=== PATIENT | female | born 2000 | race African-American/Black ===

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

== ENCOUNTER 2019-01-28 12:06 | Emergency (ER) | payer MEDICAID ==
[~2019-01-28] VITALS: Wt 52.0 kg
[2019-01-28 12:19] VITALS: BP 117/64; PULSE 71; RESP 18
[2019-01-28] MEDS ORDERED: PARO10TA57 PO (13:45)
[2019-01-28] MEDS ORDERED: OLAN10TA7 PO (13:45)
--- NOTE | 2019-01-28 13:46 | ERD ---
ER Documentation Chief Complaint Chief Complaint MEDICATION REFILL ROS All systems reviewed and are negative except as per history of present illness. Medications Home Meds Active Scripts Paroxetine Hcl* (Paxil*) 10 Mg Tablet, 10 MG PO DAILY for bipolar, #30 TAB Prov:JERALD STEINBERG DO 01/28/19 Olanzapine* (Zyprexa*) 10 Mg Tablet, 10 MG PO DAILY for bipolar, #30 TAB Prov:JERALD STEINBERG DO 01/28/19 Allergies Allergies: Coded Allergies: tramadol (Verified Allergy, Unknown, 12/24/18) PMhx/Soc History of Surgery: No Anesthesia Reaction: No Hx Neurological Disorder: No Hx Respiratory Disorders: No Hx Cardiac Disorders: No Hx Psychiatric Problems: Yes (depression, ptsd) Hx Alcohol Use: No Hx Substance Use: Yes (marijuana) Hx Tobacco Use: No Physical Exam Vitals Vital Signs Date Temp Pulse Resp B/P (MAP) Pulse Ox O2 O2 Flow FiO2 Time Delivery Rate 01/28/19 98.6 71 18 117/64 99 12:19 (81) Physical Exam Const: No acute distress Head: Atraumatic Eyes: Normal Conjunctiva ENT: Normal External Ears, Nose and Mouth. Neck: Full range of motion. No meningismus. Resp: Clear to auscultation bilaterally Cardio: Regular rate and rhythm, no murmurs Abd: Soft, non tender, non distended. Normal bowel sounds Skin: No petechiae or rashes Back: No midline or flank tenderness Ext: No cyanosis, or edema Neur: Awake and alert Psych: Normal Mood and Affect Departure Diagnosis: Primary Impression: Encounter for medication refill Additional Impression: Bipolar disorder Condition: Fair Patient Instructions: Taking Medicine Safely Referrals: [facility] YOU HAVE RECEIVED A MEDICAL SCREENING EXAM AND THE RESULTS INDICATE THAT YOU DO NOT HAVE A CONDITION THAT REQUIRES URGENT TREATMENT IN THE EMERGENCY DEPARTMENT. FURTHER EVALUATION AND TREATMENT OF YOUR CONDITION CAN WAIT UNTIL YOU ARE SEEN IN YOUR DOCTORS OFFICE WITHIN THE NEXT 1-2 DAYS. IT IS YOUR RESPONSIBILITY TO MAKE AN APPOINTMENT FOR FOLOW-UP CARE. IF YOU HAVE A PRIMARY DOCTOR --you should call your primary doctor and schedule an appointment IF YOU DO NOT HAVE A PRIMARY DOCTOR YOU CAN CALL OUR PHYSICIAN REFERRAL HOTLINE AT IF YOU CAN NOT AFFORD TO SEE A PHYSICIAN YOU CAN CHOSE FROM THE FOLLOWING [facility] [address] [facility]. [place] [address] [facility]. [facility] [address] [facility] [address] [facility]. [facility] [address] [facility]. [facility] [address] Additional Instructions: Call your primary care doctor TOMORROW for an appointment during the next 1-2 days.See the doctor sooner or return here if your condition worsens before your appointment time. Follow up with psychiatrist JERALD STEINBERG DO January 28, 2019 13:46
== END 2019-01-28 14:25 | disposition home or self-care (01) ==
LOC: FTE 12:06
DX: F31.9 Bipolar disorder, unspecified (principal)
CPT/HCPCS: 99283